=== PATIENT | female | born 1970 | race Caucasian/White ===

== ENCOUNTER 2016-12-24 11:52 | Emergency (ER) | payer OTHER ==
[~2016-12-24] VITALS: Ht 154.9 cm; Wt 65.8 kg
[~2016-12-24 11:52] MED LIST: ADDERALL 10 MG10 MG; ADDERALL 20 MG20 M1 PO; ALEVE220 MG PO; CLONAZEPAM 1 MG1 M1 PO
[2016-12-24 13:45] LABS: ABSOLUTE NEUTROPHILS 8.1 thou/uL (1.4-8.2); BASOPHILS 0.5 % (0.0-2.0); EOSINOPHILS 0.9 % (0.0-3.0); HEMATOCRIT 39.9 % (37.0-47.0); HEMOGLOBIN 13.5 gm/dL (12.0-15.0); LYMPHOCYTES 22.7 % (24.0-44.0); MCH 30.5 pg (26.0-34.0); MCHC 33.9 g/dL (28.0-37.0); MCV 90.1 fL (80.0-100.0); MONOCYTES 6.1 % (1.0-8.0); PLATELET COUNT 189 thou/uL (150-400); POLYS 69.8 % (36.0-66.0); RBC 4.43 mil/uL (4.20-5.00); RDW 13.4 % (10.5-14.5); WBC 11.6 thou/uL (4.0-11.0)
[2016-12-24 13:47] LABS: CALCIUM 9.5 mg/dL (8.5-10.1); CREATININE 0.7 mg/dL (0.6-1.0)
[2016-12-24 13:49] LABS: POTASSIUM 4.4 mmol/L (3.5-5.1)
[2016-12-24 13:49] LABS: URINE BILIRUBIN NEGATIVE (Negative); URINE BLOOD TRACE (Negative); URINE COLOR YELLOW; URINE GLUCOSE-RANDOM* NEGATIVE (Negative); URINE KETONES NEGATIVE (Negative); URINE LEUKOCYTES-REFLEX TRACE (Negative); URINE PROTEIN (DIPSTICK) NEGATIVE (Negative); URINE SPECIFIC GRAVITY <= 1.005 (1.003-1.035); URINE UROBILINOGEN 0.2 E.U./dl (0.2-1.0)
[2016-12-24 13:54] LABS: MANUAL DIFF NO
[2016-12-24 14:10] LABS: AMP/METHAMP POSITIVE (Negative); BARBITURATES Negative (Negative); BENZODIAZEPINES Negative (Negative); COCAINE Negative (Negative); METHADONE Negative (Negative); OPIATES Negative (Negative); PCP Negative (Negative); THC POSITIVE (Negative)
[2016-12-24] MEDS ORDERED: NORFLEX100 MG PO (15:01)
[2016-12-24] MEDS ORDERED: NAPROSYN500 MG PO (15:01)
[2016-12-24] MEDS ORDERED: ZOFRAN ODT4 MG PO (15:15)
[2016-12-24] MEDS ORDERED: FLEXERIL PO (15:22)
[2016-12-24] MEDS ORDERED: XANAX1 MG PO (16:16)
== END 2016-12-24 16:21 | disposition home or self-care (01) ==
LOC: ER 11:52
PROVIDERS: Emergency Medicine
DX: M54.5 Low back pain (principal); R42 Dizziness and giddiness; G89.29 Other chronic pain; M54.2 Cervicalgia; R10.2 Pelvic and perineal pain; I10 Essential (primary) hypertension; K58.9 Irritable bowel syndrome, unspecified; I95.1 Orthostatic hypotension; F17.210 Nicotine dependence, cigarettes, uncomplicated; F10.99 Alcohol use, unspecified with unspecified alcohol-induced disorder; F15.10 Other stimulant abuse, uncomplicated; Z90.721 Acquired absence of ovaries, unilateral; Z90.710 Acquired absence of both cervix and uterus; Z88.6 Allergy status to analgesic agent